=== PATIENT | female | born 1950 | race Caucasian/White ===

== ENCOUNTER 2022-06-10 08:27 | Day surgery (SDC) | payer OTHER ==
[~2022-06-10] VITALS: Ht 152.4 cm; Wt 68.1 kg
[~2022-06-10 08:27] MED LIST: SODIUM CHLORIDE 0.9% 1,000 ML IV ONE
[2022-06-10] MEDS ORDERED: SODIUM CHLORIDE 0.9% 1,000 ML ONE (08:47)
[2022-06-10] MEDS ORDERED: FentaNYL CITRATE PF 100 MCG/2 ML VIAL ONE (08:54)
[2022-06-10] MEDS ORDERED: MIDAZOLAM HCL 2 MG/2 ML VIAL ONE (08:54)
[2022-06-10] MEDS ORDERED: FAMO20TA8 PO (09:19)
[2022-06-10] MEDS ORDERED: ALBU0.212 NEB (09:19)
[2022-06-10] MEDS ORDERED: ATOR20TA65 PO (09:19)
[2022-06-10] MEDS ORDERED: BACL5TAB PO (09:19)
[2022-06-10] MEDS ORDERED: LACT10SO85 PO (09:19)
[2022-06-10] MEDS ORDERED: ASPI-1450 PO (09:20)
[2022-06-10] MEDS ORDERED: ACET325S20 PR (09:22)
[2022-06-10] MEDS ORDERED: BISA10SU11 PR (09:22)
[2022-06-10] MEDS ORDERED: MethylPREDNISolone SOD SUCC 125 MG/2 ML VIAL ONE (09:52)
[2022-06-10] MEDS ORDERED: MethylPREDNISolone SOD SUCC 125 MG/2 ML VIAL IVP ONE (10:30)
[2022-06-10] MEDS ORDERED: LIDOCAINE 4% 50 ML SOLUTION ONE ×2 (17:52→17:56)
[2022-06-10] MEDS ORDERED: BENZOCAINE 20% 50 MCG/SPRAY 57 GM ONE ×2 (17:52→17:56)
[2022-06-10] MEDS ORDERED: LIDOCAINE 2% 11 ML JELLY ONE (17:52)
[2022-06-10] MEDS ORDERED: LIDOCAINE/PF 2% 5 ML SYRINGE IVP ONE (17:56)
== END 2022-06-10 12:45 ==
LOC: SURGERY 08:27
PROVIDERS: ATTEND Internal Medicine Critical Care Medicine
DX: R05.3 Chronic cough (principal); J98.09 Other diseases of bronchus, not elsewhere classified; J98.8 Other specified respiratory disorders; I10 Essential (primary) hypertension
CPT/HCPCS: 31623; 88112; 87206; 87101; 87220; 87070; 87186; 31624; 71045; 87015; J3010; J2250; J2930; Q9967; J7030; J3490; Z7610